=== PATIENT | female | born 1985 | race Caucasian/White ===

== ENCOUNTER 2021-04-14 06:30 | Day surgery (SDC) | payer OTHER ==
[~2021-04-14] VITALS: Ht 170.2 cm; Wt 144.0 kg
--- NOTE | ~2021-04-14 | OR ---
[facility] [address] [place], [place] [address] Draft DATE OF OPERATION: 04/14/2021 SURGEON: Deangelo Sanchez DO RELEASE AND TECHNICAL RECORDS CLERK: Dr. Luque. PROCEDURE: Laparoscopic lysis of adhesions. PREOPERATIVE DIAGNOSES: Pelvic pain, BMI 49, history of pelvic adhesions. POSTOPERATIVE DIAGNOSES: Pelvic adhesions, pelvic pain, BMI 49. COMPLICATIONS: None. BLOOD LOSS: 10 mL. ANESTHESIA: General. FINDINGS: Large midline infraumbilical omental adhesion to anterior abdominal wall. Left ovarian vasculature congested. Left ovary and fimbria adherent to one another without bowel involvement. Normal-appearing appendix. Normal-appearing right ovary and tube. Normal-appearing uterus. INDICATION: The patient is a 35-year-old female with prior history of vague intermittent pelvic pain complaints which previously were relieved by laparoscopic lysis of adhesions back in [place]. Operative note was reviewed. Discussed with the patient risks and benefits of surgery including increased risk of further scarring or adhesions following operative resection and she elected to proceed with diagnostic laparoscopy, possible lysis of adhesion. DESCRIPTION OF PROCEDURE: PATIENT NAME: RAMIRO MCKEON OPERATIVE REPORT DATE OF : 83 REPORT #: [id number] PHYSICIAN: DEANGLEO SANCHEZ DO PCP: HAYLEE LAYNE PA-C REPORT IS CONFIDENTIAL AND NOT TO BE RELEASED WITHOUT AUTHORIZATION [address], [place] [address] Draft The patient was taken to the operating room where she was prepped and draped in normal sterile fashion, positioned in dorsal lithotomy. Roy catheter was placed. Hulka uterine manipulator was placed without difficulty. Surgeon's gloves were changed and attention was turned to the abdomen. Local anesthetic was injected infraumbilically in a curvilinear manner. Infraumbilical curvilinear incision was made with a scalpel. It was then carried down with blunt dissection to the underlying fascia which was grasped with hemostats, elevated and incised with Metzenbaum scissors. The superior margin of the fascia was grasped with hemostats and a stay suture of 0 Vicryl was placed. In a similar manner, the inferior margin was grasped with a hemostat, elevated, and stay suture of 0 Vicryl was placed. The peritoneum was entered bluntly and a finger sweep confirmed inferior adhesion, otherwise clear. Hortencia trocar was placed without difficulty. Pneumoperitoneum was achieved with CO2 gas. An intra-abdominal placement was confirmed with the laparoscope. Trendelenburg positioning failed to completely allow for visualization of the bowel and an additional trocar was placed in the left lateral abdomen after infiltration of the skin with local anesthetic and an incision with a scalpel. Next, 5 mm trocar was placed under direct visualization without difficulty. Abdomen was further surveyed with limitations at full visualization of the left ovary, which was an area of concern. Decision was made to place an additional trocar site in the right lateral abdomen. Local anesthetic was injected. Incision was made with a scalpel and 5 mm trocar was placed in the right lateral abdomen under direct visualization without difficulty or complication. Using blunt laparoscopic graspers, the bowel was removed from the pelvis, allowing for full visualization and inspection of the pelvis. Uterosacral ligaments were noted to be free of any endometriosis lesions or other pathology. Right tube and ovary were noted to be unremarkable along with right ovarian sulcus and right pelvic sidewall. Left ovary and fimbria were densely adherent to one another with normal-appearing ovarian tissue underlying the fimbria. Notably, bowel was well removed from the ovary and tube, however, significant pelvic congestion of the left ovarian vein was noted, particularly retroperitoneally and may be contributing to the patient's pain. Bladder adhesions were noted anteriorly, but no endometriosis lesions were seen. Appendix was visualized and normal in appearance and size. Attention was then turned to the midline omental adhesion, which was noted to be free of bowel. This was taken down using the LigaSure device with excellent visualization at all times. Following lysis of omental adhesion, excellent hemostasis was noted. Abdomen and pelvis were resurveyed. Pelvis was noted to be entirely hemostatic. Pneumoperitoneum was evacuated and all trocars were removed. The fascia was closed with 0 Vicryl in a running fashion. Stay sutures were tied over top of the fascial closure and skin was closed with 4-0 Monocryl. Uterine manipulator and Roy catheter were removed. Sponge and instrument counts were correct x2. The patient was taken to recovery in stable and satisfactory condition. PATIENT NAME: RAMIRO MCKEON OPERATIVE REPORT DATE OF : 83 REPORT #: [id number] PHYSICIAN: DEANGELO SANCHEZ DO PCP: HAYLEE LAYNE PA-C REPORT IS CONFIDENTIAL AND NOT TO BE RELEASED WITHOUT AUTHORIZATION [address] [address] Draft DO RAJAT Contreras/RESHMA /[id number] Copies: ~ PATIENT NAME: MARIANA MCKEONELLE JEFFREY OPERATIVE REPORT DATE OF : 83 REPORT #: [id number] PHYSICIAN: DEANGELO SANCHEZ DO PCP: HAYLEE LAYNE PA-C REPORT IS CONFIDENTIAL AND NOT TO BE RELEASED WITHOUT AUTHORIZATION
[~2021-04-14 06:30] MED LIST: ALDACTONE25 MG PO; CONTRAVE ER 8-1 EACH PO; LAMICTAL XR250 MG PO; METOPROLOL SUCC25 MG PO; ZESTRIL20 MG PO
--- NOTE | 2021-04-14 09:41 | NUR ---
04/14/21 0941 IVETTE LOPEZ 0928-PATIENT ARRIVES TO PACU ON 6L VIA MASK. ORAL AIRWAY IN PLACE. RESP EVEN AND UNLABORED. 0930-PATIENT REACTIVE TO VERBAL STIMULI. ORAL AIRWAY REMOVED. PATIENT IS RESTLESS. HOB ELEVATED.
--- NOTE | 2021-04-14 10:24 | NUR ---
PATIENT BACK TO ROOM, BEDSIDE REPORT FROM HOSSEIN CARDENAS. PATIENT VSS STABLE. LAP SITES TO ABDOMEN C/D/I. PATIENT REPORTS URGE TO PEE, UP TO BATRHOOM WITH COLLECTING HAT IN PLACE.
--- NOTE | 2021-04-14 11:30 | NUR ---
PATIENT RESTING IN BED WITH EYES CLOSED, AWAKES EASILY, REPORTS PAIN 6/10 ON PAIN SCALE. PATIENT REQUESTING NAUSEA MEDICAITON AND THEN A PAIN PILL. CALL TO DOCTOR, NEW ORDERS ENTERED. PATIENT SITTING UP IN BED AND EATING A SALTINE CRACKER. DRESSING C/D/I. VSS.
--- NOTE | 2021-04-14 12:07 | NUR ---
CALL LIGHT ON IN TREATMENT ROOM. PT IN BED. REPORTS VOIDING IN BATHROOM. 200ML CLEAR YELLOW UINE IN HAT. REPORTS "MODERATE" PAIN BUT DOES NOT USE 0-10 SCALE. DENIES NAUSEA. PT ALLOWED TO SLOWLY BEGIN DRESSING WITH HELP. IV REMAINS IN PLACE.
--- NOTE | 2021-04-14 13:20 | NUR ---
PROVIDED PATIENT WITH DISCHARGE INSTRUCTION. ANSWERED QUESTIONS AND CONCERNS. PATIENT TRANSFERED TO WHEELCHAIR. ANSWERED QUESTIONS THAT SIGNIFICANT OTHER HAD. DRESSING ABDOMEN C/D/I. PATIENT TRANSFERED INTO WHEELCHAIR. APPEARS STEADY ON FEET. RATES PAIN 1/10 ON PAIN SCALE. PATIENT VERBALIZED SHE WOULD GET HER PAIN MEDICATION SCRIPT FILLED PROMPTLY.
== END 2021-04-14 12:40 | disposition home or self-care (01) ==
LOC: OPS 06:30 → DS 06:30 → OPS 06:45
PROVIDERS: ATTEND Obstetrics & Gynecology
PROC: 0DNW4ZZ Release Peritoneum, Percutaneous Endoscopic Approach (ICD-10-PCS; principal; 2021-04-14 06:45)
DX: R10.2 Pelvic and perineal pain (principal); N73.6 Female pelvic peritoneal adhesions (postinfective); I10 Essential (primary) hypertension; Z88.1 Allergy status to other antibiotic agents
CPT/HCPCS: 85025; 86850; 86900; 86901; J0330; J1100; J1885; J2250; J2370; J2405; J2704; J2765; J3010; J7121

== ENCOUNTER 2021-06-29 23:11 | Emergency (ER) | payer OTHER ==
[~2021-06-29] VITALS: Ht 170.2 cm; Wt 142.0 kg
--- NOTE | ~2021-06-29 | EKG ---
[facility] [address] [facility] [place], [place] [address] Draft EK completed, results pending confirmation PATIENT NAME: JULIÁNCONCEPCIONTACOSLYLERAMIRO Electrocardiogram DATE OF : 83 PHYSICIAN: PRELIMINARY REPORT #: [id number] REPORT IS CONFIDENTIAL AND NOT TO BE RELEASED WITHOUT AUTHORIZATION
[2021-06-29] MEDS ORDERED: METFORMIN HCL500 MG PO (23:27)
[2021-06-30] MEDS ORDERED: ONE TOUCH ULTR1 EAC3 MISC (01:29)
== END 2021-06-30 01:43 | disposition home or self-care (01) ==
LOC: ED 23:11
DX: R06.02 Shortness of breath (principal); T38.3X5A Adverse effect of insulin and oral hypoglycemic [antidiabetic] drugs, initial encounter; Z20.822 Contact with and (suspected) exposure to COVID-19; E11.9 Type 2 diabetes mellitus without complications; I10 Essential (primary) hypertension; Z88.1 Allergy status to other antibiotic agents; Z88.2 Allergy status to sulfonamides; Z79.899 Other long term (current) drug therapy; Z79.84 Long term (current) use of oral hypoglycemic drugs
CPT/HCPCS: 71045; 80053; 81001; 83690; 84484; 84703; 85025; 85379; 93005; 93010; 99285-25; C9803; U0003

== ENCOUNTER 2022-06-08 19:07 | Emergency (ER) | payer OTHER ==
[~2022-06-08] VITALS: Ht 170.2 cm; Wt 136.0 kg
[~2022-06-08 19:07] MED LIST changes: +METFORMIN HCL500 MG PO; +ONE TOUCH ULTR1 EAC3 MISC
--- NOTE | 2022-06-11 16:11 | EKG ---
[facility] [address] [facility] [place] [address] Signed Normal sinus rhythm Nonspecific T wave abnormality Abnormal ECG When compared with ECG of 08-JUN-2022 19:11, (Unconfirmed) No significant change was found Confirmed by STACI LIND MD ([id number]) on 06/11/2022 4:10:59 PM Electronically Signed By: STACI LIND MD 06/11/22 1611 PATIENT NAME: RAMIRO MCKEON Electrocardiogram DATE OF : 83 PHYSICIAN: STACI LIND MD REPORT #: [id number] REPORT IS CONFIDENTIAL AND NOT TO BE RELEASED WITHOUT AUTHORIZATION
--- NOTE | 2022-06-11 16:11 | EKG ---
[facility] [address] [facility] [place], [place] [address] Signed Sinus tachycardia Otherwise normal ECG When compared with ECG of 29-JUN-2021 23:16, No significant change was found Confirmed by STACI LIND MD ([id number]) on 06/11/2022 4:10:53 PM Electronically Signed By: STACI LIND MD 06/11/22 1611 PATIENT NAME: RAMIRO MCKEON Electrocardiogram DATE OF : 83 PHYSICIAN: STACI LIND MD REPORT #: [id number] REPORT IS CONFIDENTIAL AND NOT TO BE RELEASED WITHOUT AUTHORIZATION
== END 2022-06-08 22:00 | disposition home or self-care (01) ==
LOC: ED 19:07
DX: F41.0 Panic disorder [episodic paroxysmal anxiety] (principal); I10 Essential (primary) hypertension; E11.9 Type 2 diabetes mellitus without complications; Z88.1 Allergy status to other antibiotic agents; Z88.2 Allergy status to sulfonamides; Z79.899 Other long term (current) drug therapy
CPT/HCPCS: 36415; 71045; 80053; 83735; 84443; 84484; 85025; 85379; 93005; 93010; 99285-25; A9270

== ENCOUNTER 2022-12-13 03:35 | Emergency (ER) | payer OTHER ==
[~2022-12-13] VITALS: Ht 170.2 cm; Wt 127.0 kg
--- OUTSIDE RECORDS SUMMARY | 2022-12-13 03:37 | XMS ---
PreManage Notification: RAMIRO MCKEON Security Preparation Supervisor Events No recent Security Events currently on file CRITERIA MET - PDMP CARE PROVIDERS Georgina BlumP-C Nurse Practitioner: Family Current PHONE: [phone] [place] has no Care Guidelines for this patient. E.[place] VISIT COUNT (12 MO.) 2 SAMINA Minor TOTAL 2 NOTE: Visits indicate total known visits. ED/UCC VISIT TRACKING (12 MO.) 12/13/2022 03:35 SAMINA Blevins [place] TYPE: Emergency COMPLAINT: - COVID + 06/08/2022 19:07 SAMINA Blevins [place] TYPE: Emergency COMPLAINT: - CHEST PAIN DIAGNOSES: - Allergy status to other antibiotic agents - Allergy status to sulfonamides - Chest pain, unspecified - Essential (primary) hypertension - Other terminal superintendent (current) drug therapy - Panic disorder [episodic paroxysmal anxiety] - Type 2 diabetes mellitus without complications INPATIENT VISIT TRACKING (12 MO.) No inpatient visits to display in this time frame [email or web address]
[2022-12-13 04:06] VITALS: BP 116/68
== END 2022-12-13 04:07 | disposition home or self-care (01) ==
LOC: ED 03:35
DX: U07.1 COVID-19 (principal); E11.9 Type 2 diabetes mellitus without complications; I10 Essential (primary) hypertension; Z88.1 Allergy status to other antibiotic agents; Z88.2 Allergy status to sulfonamides; Z79.84 Long term (current) use of oral hypoglycemic drugs; Z79.899 Other long term (current) drug therapy
CPT/HCPCS: 99283

== ENCOUNTER 2023-07-21 17:44 | Inpatient (IN) | payer OTHER ==
[~2023-07-21] VITALS: Ht 170.2 cm; Wt 129.7 kg
--- OUTSIDE RECORDS SUMMARY | 2023-07-21 17:46 | XMS ---
PreManage Notification: RAMIRO MCKEON Security Digital Printer Events No recent Security Events currently on file [facility] There are no care providers on record at this time. [place] has no Care Guidelines for this patient. [place] VISIT COUNT (12 MO.) 2 SAMINA Minor TOTAL 2 NOTE: Visits indicate total known visits. ED/UCC VISIT TRACKING (12 MO.) 07/21/2023 17:44 SAMINA Blevins OR TYPE: Emergency COMPLAINT: - ABDOMINAL PAIN 12/13/2022 03:35 SAMINA Blevins OR TYPE: Emergency COMPLAINT: - COVID + DIAGNOSES: - Acute pharyngitis, unspecified - Allergy status to other antibiotic agents - Allergy status to sulfonamides - COVID-19 - Essential (primary) hypertension - longterm (current) use of oral hypoglycemic drugs - Other intermediate card tender (current) drug therapy - Type 2 diabetes mellitus without complications INPATIENT VISIT TRACKING (12 MO.) No inpatient visits to display in this time frame [id number]
[2023-07-21] MEDS ORDERED: FINASTERIDE1 MG PO (19:08)
[2023-07-21] MEDS ORDERED: LISDEXAMFETAMIN40 MG PO (19:09)
[2023-07-21 19:40] LABS: BILIRUBIN, URINE NEGATIVE (negative); BLOOD/HGB, URINE NEGATIVE (Negative); KETONE, URINE NEGATIVE (Negative); LEUK ESTERASE, URINE NEGATIVE (negative); NITRITE, URINE NEGATIVE (negative); PH, URINE 5.5 (5-7)
[2023-07-21] MEDS ORDERED: LACTATED RINGER'S 1,000 ML IV ONE (19:45)
[2023-07-21] MEDS ORDERED: FAMOTIDINE 20 MG/ 2 ML VIAL IV ONE (19:45)
[2023-07-21] MEDS ORDERED: ondansetron HCL 4 MG/2 ML VIAL IV ONE (19:45)
[2023-07-21] MEDS ORDERED: KETOROLAC TROMETHAMINE 30 MG/ML VIAL IV ONE (19:45)
[2023-07-21 19:58] LABS: BASOPHILS 0.9 % (0-2); EOSINOPHILS 2.9 % (0-6); HEMATOCRIT 40.8 % (35.0-50.0); HEMOGLOBIN 13.9 g/dL (12.0-18.0); LYMPHOCYTES 38.7 % (24-44); MCH 30.2 (27-36); MCHC 34.2 g/dl (30-36); MCV 88.2 fl (81-99); MONOCYTES 7.5 % (0-12); PLATELET COUNT 225 K/uL (140-440); RBC 4.62 M/ul (4.3-5.7)
[2023-07-21 20:14] LABS: ALBUMIN 3.9 g/dL (3.4-5.0); ANION GAP 11.8 (7-21); BILIRUBIN, TOTAL 0.5 ng/dL (0.2-1.0); BUN/CREATININE RATIO 18.29 (6.0-28.6); CALCIUM 9.1 mg/dL (8.5-10.1); CREATININE, SERUM 0.82 mg/dL (0.55-1.02); POTASSIUM 3.8 mmol/L (3.5-5.1); PROTEIN, TOTAL 7.8 g/dL (6.4-8.2)
[2023-07-21] MEDS ORDERED: FAMOTIDINE 20 MG/ 2 ML VIAL IV SCH (21:37)
[2023-07-21] MEDS ORDERED: KETOROLAC TROMETHAMINE 30 MG/ML VIAL IV PRN (21:45)
[2023-07-21] MEDS ORDERED: ondansetron HCL 4 MG/2 ML VIAL IV PRN (21:45)
[2023-07-21] MEDS ORDERED: LACTATED RINGER'S 1,000 ML IV SCH (21:45)
[2023-07-21] MEDS ORDERED: MORPHINE SULFATE 10 MG/ML VIAL IV PRN (21:45)
[2023-07-21] MEDS ORDERED: CEFAZOLIN SODIUM 2 GM/20 ML SYR IV SCH (22:00)
[2023-07-21 22:22] VITALS: BP 147/88
--- NOTE | 2023-07-21 22:25 | NUR ---
pt ARRIVED TO THE FLOOR VIA STRETCHER. pt ABLE TO WALK FROM THE STRETCHER TO THE BED. ASSESSMENT AND VITAL SIGNS DONE. WATER AND BROTH PROVIDED. pt DENIES ANY OTHER NEEDS AT THIS TIME. BOWEL TONES ACTIVE. pt TENDER TO TOUCH IN RUQ. CALL LIGHT WITHIN REACH.
[2023-07-22] VITALS (10 sets, daily range): BP systolic 111–147; BP diastolic 62–94
--- NOTE | 2023-07-22 00:17 | NUR ---
pt UP TO THE BR, SBA. INDEPENDENT IN THE RM. SCD'S HOOKED UP. pt DENIES ANY NEEDS AT THIS TIME. CALL LIGHT WITHIN REACH.
--- NOTE | 2023-07-22 05:00 | NUR ---
RESATING, EYES CLOSED, NO C/O ABD PAIN OR N/V, IVF INFUSING, NPO FOR AM PROCEDURE, SCDS OFF HER REQUEST
[2023-07-22 05:44] LABS: BASOPHILS 1.1 % (0-2); EOSINOPHILS 3.7 % (0-6); HEMATOCRIT 38.1 % (35.0-50.0); HEMOGLOBIN 12.9 g/dL (12.0-18.0); MCH 30.3 (27-36); MONOCYTES 7.6 % (0-12); NEUTROPHILS 38.6 % (39-80); PLATELET COUNT 190 K/uL (140-440); RBC 4.28 M/ul (4.3-5.7); RDW 12.9 (10.5-15.0)
[2023-07-22 06:00] LABS: ALBUMIN 3.2 g/dL (3.4-5.0); ALBUMIN/GLOBULIN RATIO 0.94 (1.1-2.4); ANION GAP 13.6 (7-21); BILIRUBIN, TOTAL 0.7 ng/dL (0.2-1.0); BUN/CREATININE RATIO 16.47 (6.0-28.6); CALCIUM 8.3 mg/dL (8.5-10.1); CREATININE, SERUM 0.85 mg/dL (0.55-1.02); POTASSIUM 3.6 mmol/L (3.5-5.1); PROTEIN, TOTAL 6.6 g/dL (6.4-8.2)
--- NOTE | 2023-07-22 06:32 | NUR ---
Awake, talking in phone with family. On room air, IVF infusing, NPO for am procedure. preop expectations/procedure explained, stated understanding. voided small amount of urine, back to bed. SCD's off her request at this time
[2023-07-22] MEDS ORDERED: ondansetron HCL 4 MG/2 ML VIAL IV PRN ×2 (07:30→13:15)
[2023-07-22] MEDS ORDERED: LACTATED RINGER'S 1,000 ML IV SCH (07:30)
[2023-07-22] MEDS ORDERED: MORPHINE SULFATE 10 MG/ML VIAL IV PRN (07:30)
[2023-07-22] MEDS ORDERED: KETOROLAC TROMETHAMINE 30 MG/ML VIAL IV PRN (07:30)
--- NOTE | 2023-07-22 07:37 | NUR ---
Patient awake, alert and oriented x4. Patient reports her pain is tolerable at this time. Personal supplies and call light within reach.
[2023-07-22] MEDS ORDERED: SPIRONOLACTONE50 MG PO (08:48)
[2023-07-22] MEDS ORDERED: METFORMIN HCL500 M1 PO (08:49)
[2023-07-22] MEDS ORDERED: LISINOPRIL40 MG PO (08:49)
[2023-07-22] MEDS ORDERED: ENOXAPARIN SODIUM 40 MG/0.4 ML SYR SUB-Q SCH (09:00)
[2023-07-22] MEDS ORDERED: FAMOTIDINE 20 MG/ 2 ML VIAL IV SCH (09:00)
--- NOTE | 2023-07-22 09:15 | NUR ---
PATIENT DID SURGICAL WIPE DOWN WHEN HER FIANCE GOT HERE. NEW GOWN AND BED LINENS WERE CHANGED BY ONE OF THE STUDENT NURSE.
[2023-07-22] MEDS ORDERED: PRILOSEC OTC20 MG PO (09:43)
[2023-07-22] MEDS ORDERED: ZYRTEC10 MG PO (09:43)
--- NOTE | 2023-07-22 09:43 | NUR ---
MED REC COMPLETE
[2023-07-22] MEDS ORDERED: iopamidoL 30 ML VIAL ONE (10:31)
[2023-07-22] MEDS ORDERED: SODIUM CHLORIDE 0.9% 40 ML IV ONE (10:32)
--- NOTE | 2023-07-22 10:45 | NUR ---
PT RESTING IN BED, WAITING TO GO TO SURGERY. CALL LIGHT WITHIN REACH. PT DENIES NEEDS AT THIS TIME.
--- NOTE | 2023-07-22 11:30 | NUR ---
PT GOING TO SURGERY VIA STRETCHER WITH OR STAFF.
[2023-07-22] MEDS ORDERED: dexmedeTOMIDine HCl 200 MCG/2 ML VIAL ONE (11:49)
[2023-07-22] MEDS ORDERED: DEXAMETHASONE SOD PHOS 4 MG/ML VIAL ONE (11:49)
[2023-07-22] MEDS ORDERED: KETOROLAC TROMETHAMINE 30 MG/ML VIAL ONE (11:49)
[2023-07-22] MEDS ORDERED: KETAMINE in NS 50 MG/5 ML SYR ONE (11:49)
[2023-07-22] MEDS ORDERED: propofoL 200 MG/20 ML VIAL ONE (11:49)
[2023-07-22] MEDS ORDERED: ondansetron HCL 4 MG/2 ML VIAL ONE (11:49)
[2023-07-22] MEDS ORDERED: LIDOCAINE HCL 1% 30 ML SDV ONE (11:50)
[2023-07-22] MEDS ORDERED: ROCURONIUM BROMIDE 50 MG/5 ML SYR ONE (11:50)
[2023-07-22] MEDS ORDERED: ACETAMINOPHEN 1,000 MG/100 ML VIAL ONE (12:03)
[2023-07-22] MEDS ORDERED: MAGNESIUM SULFATE 1 GM/2 ML VIAL ONE (12:04)
[2023-07-22] MEDS ORDERED: SEVOFLURANE 250 ML BTL ONE (12:06)
[2023-07-22] MEDS ORDERED: GLYCOPYRROLATE 1 MG/5 ML MDV ONE (12:58)
[2023-07-22] MEDS ORDERED: LACTATED RINGER'S 1,000 ML IV ONE (12:58)
[2023-07-22] MEDS ORDERED: SUGAMMADEX SODIUM 200 MG/2 ML ML ONE (13:00)
[2023-07-22] MEDS ORDERED: NALOXONE HCL 0.4 MG SYR IV PRN (13:15)
[2023-07-22] MEDS ORDERED: fentaNYL citrate 50 MCG/ML SDV IV PRN (13:15)
[2023-07-22] MEDS ORDERED: IBLOOD GLUCOSE TEST STRIP 1 EA TEST VI PRN (13:15)
[2023-07-22] MEDS ORDERED: HYDROmorphone HCL 1 MG/ML SYR IV PRN (13:15)
[2023-07-22] MEDS ORDERED: droPERidol 5 MG/2 ML VIAL ONE (13:22)
[2023-07-22] MEDS ORDERED: fentaNYL citrate 100 MCG/2 ML VIAL ONE (13:24)
[2023-07-22] MEDS ORDERED: MIDAZOLAM HCL 2 MG/2 ML VIAL ONE (13:26)
--- NOTE | 2023-07-22 13:33 | NUR ---
07/22/23 Yvette Corona PATIENT ARRIVES IN PACU UNRESPONSIVE. JAW THRUST REQUIRED FOR GAS EXCHANGE.
[2023-07-22] MEDS ORDERED: CEFAZOLIN SODIUM 3 GM/30 ML SYR IV SCH (14:00)
--- NOTE | 2023-07-22 14:35 | NUR ---
PT ARRIVED BACK TO UNIT FROM PACU AT 1413. RESTING, BUT ABLE TO OPEN EYES AND RESPOND TO STIMULI, C/O PAIN 6/10 TO ABDOMEN AND NEEDS TO UTILIZE THE BATHROOM. SBA TO BATHROOM, PT VOIDED 600ML. VS STABLE, ONCE BACK INTO BED, PT EYES CLOSED AND SNORING. CONTINUOUS PULSE OXIMETRY IN PLACE, O2 94% BUT PER FLOOR SWEEPER PT DESAT IN PACU - WILL MONITOR CLOSELY. IV FLUIDS RESTARTED ORDERED AT 85ML/HR. WARM BLANKETS PROVIDED TO PATIENT AND PT STATES SHE DOES HAVE RIGHT SHOULDER PAIN, WARM BLANKET PROVIDED TO HELP WITH GAS PAIN. PT ALSO BURPING ALOT WHEN SITTING UP ON EDGE OF BED TO GO TO BATHROOM, EXPLAINED NORMAL AND LET IT OUT. PT RESTING AT THIS TIME, WILL MONITOR VS POST-OPERATIVELY AND PROVIDE PAIN MGMT ACCORDINGLY.
[2023-07-22] MEDS ORDERED: OXYCODONE/APAP 7.5/325 TAB PO PRN (14:45)
[2023-07-22] MEDS ORDERED: ACETAMINOPHEN 500 MG TAB PO PRN (14:45)
[2023-07-22] MEDS ORDERED: IBUPROFEN 600 MG TAB PO PRN (14:45)
--- NOTE | 2023-07-22 15:09 | NUR ---
Patient reports 7/10 abdominal pain. Admin morphine 2mg IV at this time. Lap sites x4 noted to abdomen-steri strips in place. Patient's IV site patent, fluids infusing per provider order. Patient denies further needs at this time.
--- NOTE | 2023-07-22 16:12 | NUR ---
Patient sleeping, easily wakes to verbal stimuli. Patient reports her pain has improved. Vital signs remains stable, 96% sp02 on room air. at bedside-updated him regarding plan of care. Lap sites unchanged. Call light within reach.
--- NOTE | 2023-07-22 17:05 | NUR ---
Patient reports 6/10 abdominal pain. Admin one tab Percocet 7.5/325mg po with a snack at this time.
--- NOTE | 2023-07-22 19:12 | NUR ---
BEDSIDE REPORT RECEIVED FROM HANANE, PT RESTING WITH EYES CLOSED, AWAKEN EASILY, DENIES PAIN, LAP SITES OBSERVED WITH HANANE RN, SMALL AMOUNT SERO DRAINAGE, ICE TO LAP SITES, FAMILY AT BEDSIDE, MEAL PLACED IN FRONT OF PT PER HANANE CARDENAS, IV PATENT AND INFUSING WELL AT 85ML/HR.
--- NOTE | 2023-07-22 21:29 | NUR ---
RN TO BEDSIDE, VS AND ASSESSMENT COMPLETED, PT ASSISTED UP TO BR TO VOID 1000ML YELLOW URINE, GAIT STEADY, WITHOUT C/O DIZZINESS, BACK TO BED, PT C/O ABDOMINAL PAIN 08/04, REQUESTING MEDICATION, MEDICATED WITH 2MG MORPHINE IV DUE TO TOO SOON TO HAVE PERCOCET OR MOTRIN, IV SITE PATENT IN RIGHT AC, LR INFUSING WELL AT 85ML/HR. PT TALKING ON PHONE TO FAMILY, WITHOUT OTHER REQUESTS, SIDE RAILS UP X 2, BED LOW POSITION AND CALL LIGHT IN REACH.
--- NOTE | 2023-07-22 23:40 | NUR ---
PT APPEARS TO SLEEP, RESP EVEN AND REG, CPOX ON AND CURRENTLY AT 91%. IVF INFUSING WELL.
--- NOTE | 2023-07-22 23:58 | NUR ---
PT AWAKE AND ALERT, REQUESTING PAIN MEDICATION FOR PAIN /, MEDICATED WITH PERCOCET 7.5MG AND MOTRIN PER ORDER, PT RESTING WITHOUT FURTHER REQUESTS.
--- NOTE | 2023-07-23 01:00 | NUR ---
PT RESTING WITHOUT REQUESTS AT THIS TIME.
[2023-07-23 02:20] VITALS: BP 128/78
--- NOTE | 2023-07-23 02:20 | NUR ---
PT AWAKEN FOR VS, VS STABLE, AFEBRILE, ABDOMINAL DRESSSING WITH NO FURTHER DRAINAGE, ABDOMEN SOFT, PT MEDICATED WITH ZOFRAN 8MG IV FOR C/O NAUSEA, PT UP TO BR TO VOID 450ML YELLOW URINE, PT RESTING WITHOUT OTHER REQUESTS.
[2023-07-23 02:30] VITALS: BP 128/78
--- NOTE | 2023-07-23 04:20 | NUR ---
PT APPEARS TO SLEEP, RESP EVEN AND REG, CPOX AT 97%
[2023-07-23 06:40] VITALS: BP 120/79
--- NOTE | 2023-07-23 06:45 | NUR ---
PT ASLEEP, RESP EVEN AND REG, AWAKEN FOR VS, VS STABLE, AFEBRILE, PT MEDICATED FOR PAIN 4/10 IN ABDOMEN WITH MOTRIN PER HER REQUEST, PT EXCITED TO GO HOME TODAY.
--- NOTE | 2023-07-23 07:33 | NUR ---
Patient resting, eyses closed, respirations even and non labored. Personal supplies and call light within reach.
[2023-07-23] MEDS ORDERED: OXYCODON-ACETA1 EAC2 PO (08:03)
[2023-07-23] MEDS ORDERED: ACETAMINOPHEN500 MG PO (08:03)
[2023-07-23] MEDS ORDERED: IBUPROFEN600 MG PO (08:03)
--- NOTE | 2023-07-23 08:28 | OR ---
[facility] [address] [place], [place] [address] Signed DATE OF OPERATION: 07/22/2023 SURGEON: Jose Sainz MD PREOPERATIVE DIAGNOSES: 1. Acute calculous cholecystitis. 2. Morbid obesity (BMI 45.2). POSTOPERATIVE DIAGNOSES: 1. Acute calculous cholecystitis. 2. Morbid obesity (BMI 45.2). PROCEDURES: 1. Laparoscopic cholecystectomy with intraoperative cholangiogram, difficult related to obesity. 2. Surgeon-directed fluoroscopy. ANESTHESIA: General endotracheal; Mavis Darek, CUT OUT WORKER and local 10 mL of 0.25% Marcaine with epinephrine. INDICATION: This morbidly obese, BMI 45.2, white woman is a patient of JAMI Nuñez. She presented to the emergency room late last night with recurrent bouts of epigastric and right subcostal pain. Gallbladder ultrasound was performed showing multiple gallstones. Liver enzymes were normal. She has tenderness in the right upper quadrant. She has been fluid resuscitated given intravenous antibiotics and now to undergo cholecystectomy preferred by laparoscopic approach. The risk of bleeding, infection, bile duct injury, need for open procedure, need for common duct exploration and so forth were all reviewed in detail. She understands and wished to proceed. FINDINGS: The liver was fatty, infiltrated and obesity was considerable. She had some omental adhesions at the umbilicus, which were not a problem. The gallbladder was distended and inflamed and edematous. Cholecystectomy was performed and cholangiogram also performed which was normal. The operation was difficult on the basis of her obesity. PROCEDURE IN DETAIL: The patient was brought to the operating room, given a general endotracheal anesthetic. Preoperative antibiotic 3 g Ancef was given intraoperatively at the outset of surgery. Electronically Signed By: JOSE SAINZ MD 07/23/23 0828 PATIENT NAME: RAMIRO MCKEON OPERATIVE REPORT DATE OF : 83 REPORT #: [id number] PHYSICIAN: JOSE SAINZ MD PCP: IAN RETANA REPORT IS CONFIDENTIAL AND NOT TO BE RELEASED WITHOUT AUTHORIZATION [facility] [address] [place], [place] [address] Signed The abdomen was prepared with a chlorhexidine solution after shaving (clipping) and draped sterilely. An infraumbilical incision was made mindful of her previous transverse incision at the umbilicus. Using an open Hortencia cannula technique, the abdomen was entered without problem. There were some omental adhesions at that site. A long umbilical Hortencia cannula was ultimately used. Pneumoperitoneum was achieved to a level of 14 mmHg with carbon dioxide gas. Intra-abdominal inspection showed no sign of ascites or carcinomatosis. The liver was rather bulky and fatty infiltrated with the gallbladder was found to be quite inflamed and distended. Three additional trocars were placed in usual configuration in the subxiphoid, right midclavicular, and right anterior axillary line. The gallbladder was grasped and elevated cephalad and retracted laterally. Though it was distended, a good plane was developed of in the triangle of Calot ultimately identifying well the cystic duct and cystic artery. A fair amount of fatty tissue was noted over the area. A clip was applied across gallbladder cystic duct junction and a clip applied across the cystic artery as well. A transverse choledochotomy was made in the cystic duct and a small amount of egress of bile was noted. Using an Johansen type cholangiocatheter intraoperative cholangiography was undertaken showing free flow of contrast in biliary tree with prompt emptying into the duodenum. There was no sign of filling defect or biliary anomaly. The catheter was removed. The cystic duct was triply clipped and divided. The gallbladder was then dissected free in a retrograde fashion using electrocautery. A small entry into the gallbladder allowed for spillage of some bile, but no stone spillage. Ultimately, the gallbladder was fully excised from the liver, placed in an endobag and extracted through the infraumbilical port site without problem. It was opened on the back table and found to have multiple yellow multifaceted stones about 1 cm in size. Irrigation was undertaken in subhepatic space. Cautery was used to secure the areas of minimal bleeding. Some Eric hemostatic agent was applied to the surface as well. Complete hemostasis was assured. The trocars removed under direct visualization showing no sign of bleeding. The infraumbilical fascial incision was reapproximated with interrupted 0 Vicryl suture and ultimately a running 0 PDS suture. Subcutaneous tissues were reapproximated with interrupted 3-0 Vicryl and skin closed with interrupted 3-0 Vicryl. Steri-Strips were applied. The patient was extubated in the operating room, taken to the recovery room in good condition having suffered no known complications. Blood loss was less than 20 mL. Sponge, needle and instrument counts were reported as correct x3. Given her extreme obesity the operation was rather difficult, though not excessively prolonged, but nonetheless quite challenging, but accomplished safely. Electronically Signed By: JOSE SAINZ MD 07/23/23 0828 PATIENT NAME: RAMIRO MCKEON OPERATIVE REPORT DATE OF : 83 REPORT #: [id number] PHYSICIAN: JOSE SAINZ MD PCP: IAN RETANA REPORT IS CONFIDENTIAL AND NOT TO BE RELEASED WITHOUT AUTHORIZATION [facility] [address] [place], [place] [address] Signed MD REYNA Portillo/RESHMA /[id number] cc: JAMI Martines Copies: ~ Electronically Signed By: JOSE SAINZ MD 07/23/23 0828 PATIENT NAME: RAMIRO MCKEON OPERATIVE REPORT DATE OF : [birth year] REPORT #: [id number] PHYSICIAN: JOSE SAINZ MD PCP: IAN RETANA REPORT IS CONFIDENTIAL AND NOT TO BE RELEASED WITHOUT AUTHORIZATION
--- NOTE | 2023-07-23 08:28 | HP ---
[facility] [address] [place], [place] [address] Signed ADMISSION DATE: 07/22/2023 REASON FOR ADMISSION: Acute cholecystitis with gallstones. HISTORY OF PRESENT ILLNESS: This morbidly obese 37-year-old white woman was seen late last night by Dr. Miguel Goldman in the emergency room with complaints of right upper abdominal pain. She had similar complaints the day before, though opted to not present to the emergency room at that time. She did not have emesis, but did have nausea. Her evaluation in the emergency room included gallbladder ultrasound confirming multiple gallstones, but without gallbladder wall thickening. Her white count was normal and liver enzymes normal. Given her tenderness and so forth, she was considered to have acute calculous cholecystitis and was admitted for further evaluation and care. This morning, she is feeling somewhat better, though still has persistent right upper abdominal pain. PAST MEDICAL HISTORY: Significant for significant morbid obesity (BMI is 45.2), weight 288 pounds. She additionally has diet-controlled diabetes, hypertension, history of (14 years ago), history of cataract, retina surgery, and prior laparoscopy with ovarian cyst resection. She is unmarried, though she does have 14-year-old son. She does use marijuana on an episodic basis. Other issues include bipolar disease. She is on Nexplanon control method. Beta HCG is negative. ALLERGIES: She does have allergy to sulfa medications and clindamycin. CURRENT MEDICATIONS: At admission include finasteride, , spironolactone, metformin, lisinopril, metoprolol, and Lamictal. REVIEW OF SYSTEMS: She denies any shortness of breath or chest pain. She has had no hematemesis or blood per rectum. PHYSICAL EXAMINATION: GENERAL: A quite morbidly obese white woman who appears nontoxic at this time. HEENT: Mucous membranes are moist. Electronically Signed By: JOSE SAINZ MD 07/23/23 0828 PATIENT NAME: RAMIRO MCKEON HISTORY AND PHYSICAL DATE OF : 83 REPORT #: [id number] PHYSICIAN: JOSE SAINZ MD PCP: IAN RETANA REPORT IS CONFIDENTIAL AND NOT TO BE RELEASED WITHOUT AUTHORIZATION [facility] [address] [place], [place] [address] Signed NECK: Trachea is midline. CHEST: Clear. HEART: Regular without murmur. ABDOMEN: Quite obese. There is mild tenderness in her right subcostal area. There is no palpable mass. She has no evidence of ascites. Gallbladder ultrasound was reviewed showing multiple gallstones layering in the gallbladder. The gallbladder appears relatively small. She does have fatty liver. ASSESSMENT: The patient has acute calculous cholecystitis and has been admitted for further evaluation and care. This has included administration of antibiotics, parenteral pain medication, IV fluid resuscitation. Would recommend cholecystectomy later in the day. I discussed in detail using the whiteboard, pathophysiology of biliary disease and recommendation of treatment to include cholecystectomy, preferably by laparoscopic approach. The risk of bleeding, infection, bile duct injury, need for open procedure, need for common duct exploration and need for other indicated procedure was reviewed in detail. She understands and wished to proceed. Jose Sainz MD JM/MODL /[id number] cc: JAMI Nuñez Dr. Copies: ~ Electronically Signed By: JOSE SAINZ MD 07/23/23 0828 PATIENT NAME: RAMIRO MCKEON HISTORY AND PHYSICAL DATE OF : [birth year] REPORT #: [id number] PHYSICIAN: JOSE SAINZ MD PCP: IAN RETANA REPORT IS CONFIDENTIAL AND NOT TO BE RELEASED WITHOUT AUTHORIZATION
[2023-07-23 09:10] VITALS: BP 145/79
--- NOTE | 2023-07-23 09:38 | NUR ---
Patient sitting up eating breakfast, alert and oriented x4. Patient reports 5/10 abdominal pain, admin one tab percocet 7.5/325mg po. Patient updated with plan of care to discharge home per provider order. pt receptive.
[2023-07-23 10:33] VITALS: BP 131/85
--- NOTE | 2023-07-25 09:23 | DS ---
[facility] [address] [place], [place] [address] Signed ADMISSION DATE: 07/21/2023 DISCHARGE DATE: 07/23/2023 REASON FOR ADMISSION: Morbidly obese (BMI 44.8) white woman presented in late in the night to Dr. Miguel Sherwood in the [place] [facility] with complaints of right upper abdominal pain. She had nausea without associated emesis. A gallbladder ultrasound was performed confirming multiple gallstones without gallbladder wall thickening. Her white count and liver enzymes were normal. She had persistent tenderness, is admitted for acute calculous cholecystitis. PERTINENT PHYSICAL EXAMINATION: GENERAL: Showed a morbidly obese white woman, who appeared nontoxic overall. NECK: Trachea is midline. CHEST: Clear. HEART: Regular without murmur. ABDOMEN: Quite markedly obese. There is tenderness in the right subcostal area. There is no palpable mass. She had no ascites. IMAGING: Gallbladder ultrasound confirms multiple gallstones layering in the gallbladder. LABORATORY STUDIES: Showed a white count of 8.0, hematocrit of 40.8, platelets of 225,000. Chem profile showing normal lipase, negative beta-hCG and liver enzymes were normal. HOSPITAL COURSE: She was given intravenous fluid resuscitation, IV antibiotics and underwent operation on July 22, 2023, which included laparoscopic cholecystectomy with intraoperative cholangiogram. The operation was challenging in relation to her obesity. It was accomplished safely. Cholangiogram was normal. The gallbladder had multiple yellow multifaceted 1 cm gallstones. Postoperatively, she had no specific issue. She is able to tolerate a regular diet promptly and resumed her activities. Incisional pain is well managed by oral analgesics. She is discharged to home with a restriction to avoid lifting more than 20 pounds for the next two weeks. She is free to work whenever she can and wishes to predicated on the restriction. DISCHARGE MEDICATIONS: Include: Electronically Signed By: JOSE SAINZ MD 07/25/23 0923 PATIENT NAME: RAMIRO MCKEON DISCHARGE SUMMARY DATE OF : [birth year] REPORT #: [id number] PHYSICIAN: JOSE SAINZ MD PCP: IAN RETANA REPORT IS CONFIDENTIAL AND NOT TO BE RELEASED WITHOUT AUTHORIZATION [facility] [address] [place], [place] [address] Signed 1. Ibuprofen 600 mg p.o. q.6 hours as needed for pain, #60 refill one. 2. Oxycodone 7.5/325 1-2 p.o. q.6 hours as needed for severe pain, #10 no refill. 3. Tylenol 500 mg two tablets p.o. q.6 hours as needed for pain, #60 refill one. 4. She will resume her usual medication of metoprolol 25 mg p.o. daily. 5. Lamotrigine Lamictal XR 250 mg p.o. daily. 6. Finasteride 1 mg p.o. at bedtime. 7. Dextroamphetamine 40 mg capsule p.o. daily. 8. Spironolactone 50 mg p.o. at bedtime. 9. Lisinopril 40 mg p.o. at bedtime. 10. Metformin 500 mg p.o. at bedtime. 11. Cetirizine 10 mg p.o. daily as needed. 12. Omeprazole 20 mg p.o. at bedtime. FOLLOWUP PLAN: She will return to see me in approximately one month. She will call on Tuesday to arrange an appointment. DISCHARGE DIAGNOSES: 1. Severe acute calculus cholecystitis status post laparoscopic cholecystectomy with intraoperative cholangiogram. 2. Morbid obesity, BMI 44.8. 3. Hypertension. 4. Diabetes. 5. Gastroesophageal reflux symptoms. MD REYNA Portillo/GEORGEL /[id number] cc: JAMI Nuñez MD Electronically Signed By: JOSE SAINZ MD 07/25/23922 PATIENT NAME: RAMIRO MCKEON DISCHARGE SUMMARY DATE OF : [birth year] REPORT #: [id number] PHYSICIAN: JOSE SAINZ MD PCP: IAN RETANA-Bandar REPORT IS CONFIDENTIAL AND NOT TO BE RELEASED WITHOUT AUTHORIZATION [address] [address] Signed Copies: ~ Electronically Signed By: JOSE SAINZ MD 07/25/23922 PATIENT NAME: RAMIRO MCKEON DISCHARGE SUMMARY DATE OF : [birth year] REPORT #: [id number] PHYSICIAN: JOSE SAINZ MD PCP: IAN RETANA REPORT IS CONFIDENTIAL AND NOT TO BE RELEASED WITHOUT AUTHORIZATION
--- NOTE | 2023-07-29 16:51 | PATH ---
[facility] [address] [place], [place] [address] Signed SPECIMEN(S): A GALLBLADDER AND STONES SPECIMEN SOURCE: A. GALLBLADDER AND STONES CLINICAL HISTORY: Acute cholecystitis. FINAL PATHOLOGIC DIAGNOSIS: Gallbladder and stones: - Chronic calculous cholecystitis. - Mucosal cholesterolosis. - Incidental pericystic lymph node with reactive histologic features. TriniVR:sally MICROSCOPIC EXAMINATION: Histologic sections of all submitted blocks are examined by light microscopy. These findings, together with the gross examination, support the pathologic diagnosis. GROSS DESCRIPTION: The specimen, labeled and designated "miroslava Mckeon," is received in formalin and consists of: Specimen: Previously opened gallbladder. Dimensions: 7.5 x 3.0 cm. Serosa: Violaceous, smooth. Cystic Duct: Inked, unobstructed. Calculi: Numerous yellow, faceted gallstones within the container that range in size from 0.6 to 0.8 cm in greatest dimension. Mucosa: [place]-st[place] and velvety. Wall thickness: 0.4 cm. Lymph node: One possible pericystic lymph node that measures 0.6 cm in greatest dimension is identified. Possible lymph node is bisected and entirely submitted. Additional: None. Cause Analyst sections are submitted in (A1). JS (under the direct supervision of a pathologist) The Gross Description was prepared using a voice recognition system. The report was reviewed for accuracy; however, sound-alike word errors, addition and/or deletions may occur. If there is any question about this report, please contact Client Services. PATIENT NAME: RAMIRO MCKEON PATHOLOGY DATE OF : 83 REPORT #: [id number] PHYSICIAN: ALEKSANDER FERRER PCP: IAN RETANA REPORT IS CONFIDENTIAL AND NOT TO BE RELEASED WITHOUT AUTHORIZATION [facility] [address] [facility] [place] [address] Signed ADDITIONAL NOTES: Immunohistochemical and/or in situ hybridization studies if performed in this case included appropriate positive controls that reacted as expected. This test was developed and its performance characteristics determined by [employer]. It has not been cleared or approved by the U.S. Food and Drug Administration. The FDA has determined that such clearance or approval is not necessary. This test is used for clinical purposes. It should not be regarded as investigational or for research. [employer] is certified under the Clinical Laboratory Improvement Amendments of 1988 (CLIA) as qualified to perform high complexity clinical laboratory testing. PERFORMING LABORATORY: Technical component was performed by [employer], [address] [place] [id number] (CLIA# [id number]). Professional interpretation was performed by [facility], [address] [place] [id number] (CLIA#: [id number]). Diagnostician: Phani Santana MD Pathologist Electronically Signed 07/29/2023 Copies: ~ PATIENT NAME: RAMIRO MCKEON PATHOLOGY DATE OF : [birth year] REPORT #: [id number] PHYSICIAN: ALEKSANDER FERRER PCP: IAN RETANA REPORT IS CONFIDENTIAL AND NOT TO BE RELEASED WITHOUT AUTHORIZATION
== END 2023-07-23 11:00 | disposition home or self-care (01) | DRG 418 ==
LOC: ED 17:44 → MS 21:44
PROVIDERS: Internal Medicine; ADMIT Surgery; ATTEND Surgery
PROC: 0FT44ZZ Resection of Gallbladder, Percutaneous Endoscopic Approach (ICD-10-PCS; principal; 2023-07-22 12:00)
DX: K80.00 Calculus of gallbladder with acute cholecystitis without obstruction (principal); Z68.41 Body mass index [BMI] 40.0-44.9, adult; E66.01 Morbid (severe) obesity due to excess calories; I10 Essential (primary) hypertension; E11.9 Type 2 diabetes mellitus without complications; K21.9 Gastro-esophageal reflux disease without esophagitis; K76.0 Fatty (change of) liver, not elsewhere classified; K66.0 Peritoneal adhesions (postprocedural) (postinfection); F31.9 Bipolar disorder, unspecified; F12.90 Cannabis use, unspecified, uncomplicated; Z98.890 Other specified postprocedural states; Z88.1 Allergy status to other antibiotic agents; Z88.2 Allergy status to sulfonamides; Z79.899 Other long term (current) drug therapy; Z79.84 Long term (current) use of oral hypoglycemic drugs; Z79.811 Long term (current) use of aromatase inhibitors
CPT/HCPCS: 00790; 36415; 74300; 76705; 80053; 81003; 83690; 84703; 85025; A9270; J0131; J0690; J1100; J1650; J1790; J1885; J2250; J2270; J2405; J2704; J3010; J3475; J3490; J7121; Q9967